=== PATIENT | male | born 1990 | race Caucasian/White ===

== ENCOUNTER 2021-09-29 16:07 | Emergency (ER) | payer OTHER, SELFPAY ==
[2021-09-29 16:20] VITALS: BP 128/89; PULSE 64; RESP 20; TEMP 36.9; O2SAT 98; BMI 17.7
[2021-09-29] MEDS: SODIUM CHLORIDE 0.9% 1,000 ML 1000 ML IV ×2 (16:43→18:25)
[2021-09-29] MEDS: METOCLOPRAMIDE 10 MG/2 ML INJ IV (16:43)
--- NOTE | 2021-09-29 16:45 | PC.NURSE ---
pt's HR noted to haim down to 32 then back to 40-60. pt reports hx of possibly a murmur. notified. EKG ordered.
[2021-09-29] MEDS: diazePAM 10 MG/2 ML SYRINGE 2 MG IV (16:57)
[2021-09-29] MEDS: PANTOPRAZOLE 40 MG VIAL IV (16:57)
--- NOTE | 2021-09-29 17:03 | ED.NAVMDI ---
HPI - Nausea/Vomiting/Diarrhea <DO Clau Xiong Last Filed: 09/30/21 07:00> General Chief complaint: Nausea/Vomiting/Diarrhea Stated complaint: Vomiting/Dehydration Time Seen by Provider: 09/29/21 16:50 Source: patient and family Mode of arrival: Wheelchair History of Present Illness HPI Narrative: Patient is a 31-year-old male history of cyclic vomiting marijuana use presenting today with nausea vomiting. Apparently they live in [place] driving here yesterday. Started feeling weak not great yesterday this morning vomiting numerous times. He is now received Reglan. He was noted to be slightly bradycardic heart rate in the 30 stone 40s. That seems to have helped him. Most of the history is from partner in room. Related Data Previous Rx's Medication Instructions Recorded haloperidol 2 mg tablet 2 mg PO Q6H PRN nausea and 09/29/21 vomiting #14 tabs Allergies Allergy/AdvReac Type Severity Reaction Status Date / Time No Known Drug Allergies Allergy Verified 09/29/21 16:25 Review of Systems <DO Clau Xiong Last Filed: 09/30/21 07:00> Review of Systems Narrative: GENERAL: Denies chills, fatigue, malaise, fever, sweats, travel HEENT: Denies sinus pain, ear pain, sore throat, difficulty swallowing, neck pain RESPIRATORY: Denies dyspnea, cough, wheezing, hemoptysis, sputum. CARDIOVASCULAR: Denies chest pain, palpitations, orthopnea, edema GASTROINTESTINAL: : Denies dysuria, frequency, incontinence, hematuria, urinary retention, flank pain. MUSCULOSKELETAL: Denies weakness, joint pain, or bony pain SKIN: No rash, no erythema, no pruritus NEUROLOGIC: Denies weakness, dizziness, headache, numbness, change in speech, confusion PSYCHIATRIC: No concerning psychosocial issues. 12 point review of systems is negative except for those stated above and HPI Patient History <DO Clau Xiong Last Filed: 09/30/21 07:00> Substance Use Type: marijuana Exam <DO Clau Xiong Last Filed: 09/30/21 07:00> Initial Vital Signs Initial Vital Signs: Vital Signs Temperature 98.4 F 09/29/21 16:20 Pulse Rate 64 09/29/21 16:20 Respiratory Rate 20 09/29/21 16:20 Blood Pressure 128/89 09/29/21 16:20 Pulse Oximetry 98 09/29/21 16:20 Oxygen Delivery Method 09/29/21 16:20 GENERAL: Sleeping 31-year-old male responsive and in no acute distress. HEENT: Head atraumatic,EOMI, pupils reactive, face symmetric, moist mucous membranes CARDIOVASCULAR: Regular rate and rhythm without murmurs, rubs or gallops. RESPIRATORY: Breath sounds equal bilaterally, no wheezes rales or rhonchi. ABDOMEN: Soft, nontender. Normoactive bowel sounds all 4 quadrants. No guarding or rebound. EXTREMITIES: Normal range of motion, no clubbing or edema. Neurovascularly intact NEUROLOGICAL: Alert and oriented x4.Normal gait and speech. SKIN: Warm, dry, no laceration, no petechiae, no rashes or lesions. <Zeinab Montana MD - Last Filed: 09/29/21 20:25> Initial Vital Signs Initial Vital Signs: Vital Signs Temperature 98.4 F 09/29/21 16:20 Pulse Rate 64 09/29/21 16:20 Respiratory Rate 20 09/29/21 16:20 Blood Pressure 128/89 09/29/21 16:20 Pulse Oximetry 98 09/29/21 16:20 Oxygen Delivery Method 09/29/21 16:20 Course <Darby Oconnor DO - Last Filed: 09/30/21 07:00> Orders Ordered: Discontinued Medications Diazepam (Diazepam 10 Mg/2 Ml Syringe) 2 mg IV NOW ONE Stop: 09/29/21 16:51 Last Admin: 09/29/21 16:57 Dose: 2 mg Documented By: SANDI Diphenhydramine HCl (Diphenhydramine 50 Mg/Ml Vial) 25 mg IV NOW ONE Stop: 09/29/21 19:37 Last Admin: 09/29/21 19:41 Dose: 25 mg Documented By: MIKAYLA Haloperidol (Haloperidol 5 Mg/Ml Vial) 2 mg IV NOW ONE Stop: 09/29/21 19:37 Last Admin: 09/29/21 19:42 Dose: 2 mg Documented By: MIKAYLA Sodium Chloride (Normal Saline 0.9%) 1,000 mls @ 1,000 mls/hr IV BOLUS ONE Stop: 09/29/21 17:25 Last Infusion: 09/29/21 17:37 Dose: 0 mls/hr Documented By: Admin: 09/29/21 16:43 Dose: 1,000 mls/hr Documented By: SANDI Sodium Chloride (Normal Saline 0.9%) 1,000 mls @ 1,000 mls/hr IV BOLUS ONE Stop: 09/29/21 19:21 Last Infusion: 09/29/21 19:53 Dose: 0 mls/hr Documented By: Admin: 09/29/21 18:25 Dose: 1,000 mls/hr Documented By: SANDI Metoclopramide HCl (Metoclopramide 10 Mg/2 Ml Inj) 10 mg IV NOW ONE Stop: 09/29/21 16:27 Last Admin: 09/29/21 16:43 Dose: 10 mg Documented By: SANDI Pantoprazole Sodium (Pantoprazole 40 Mg Vial) 40 mg IV NOW ONE Stop: 09/29/21 16:51 Last Admin: 09/29/21 16:57 Dose: 40 mg Documented By: SANDI Vital Signs Vital signs: Vital Signs - 8 hr 09/29/21 16:20 Temperature 98.4 F Pulse Rate 64 Respiratory Rate 20 Blood Pressure 128/89 Pulse Oximetry 98 Oxygen Delivery Method Room Air <Zeinab Montana MD - Last Filed: 09/29/21 20:25> Orders Ordered: Discontinued Medications Diazepam (Diazepam 10 Mg/2 Ml Syringe) 2 mg IV NOW ONE Stop: 09/29/21 16:51 Last Admin: 09/29/21 16:57 Dose: 2 mg Documented By: SANDI Diphenhydramine HCl (Diphenhydramine 50 Mg/Ml Vial) 25 mg IV NOW ONE Stop: 09/29/21 19:37 Last Admin: 09/29/21 19:41 Dose: 25 mg Documented By: MIKAYLA Haloperidol (Haloperidol 5 Mg/Ml Vial) 2 mg IV NOW ONE Stop: 09/29/21 19:37 Last Admin: 09/29/21 19:42 Dose: 2 mg Documented By: MIKAYLA Sodium Chloride (Normal Saline 0.9%) 1,000 mls @ 1,000 mls/hr IV BOLUS ONE Stop: 09/29/21 17:25 Last Infusion: 09/29/21 17:37 Dose: 0 mls/hr Documented By: Admin: 09/29/21 16:43 Dose: 1,000 mls/hr Documented By: SANDI Sodium Chloride (Normal Saline 0.9%) 1,000 mls @ 1,000 mls/hr IV BOLUS ONE Stop: 09/29/21 19:21 Last Infusion: 09/29/21 19:53 Dose: 0 mls/hr Documented By: Admin: 09/29/21 18:25 Dose: 1,000 mls/hr Documented By: SANDI Metoclopramide HCl (Metoclopramide 10 Mg/2 Ml Inj) 10 mg IV NOW ONE Stop: 09/29/21 16:27 Last Admin: 09/29/21 16:43 Dose: 10 mg Documented By: SANDI Pantoprazole Sodium (Pantoprazole 40 Mg Vial) 40 mg IV NOW ONE Stop: 09/29/21 16:51 Last Admin: 09/29/21 16:57 Dose: 40 mg Documented By: SANDI Vital Signs Vital signs: Vital Signs - 8 hr 09/29/21 16:20 Temperature 98.4 F Pulse Rate 64 Respiratory Rate 20 Blood Pressure 128/89 Pulse Oximetry 98 Oxygen Delivery Method Room Air MDM - Nausea/Vomiting/Diarrhea <Darby Oconnor DO - Last Filed: 09/30/21 07:00> Lab Data Result diagrams: 09/29/21 16:40 09/29/21 16:40 Labs: Lab Results 09/29/21 09/29/21 09/29/21 Range/Units 16:40 16:40 16:40 WBC 12.2 H (4.5-11.0) X10^3/uL RBC 4.64 (4.5-5.9) X10^6/uL Hgb 14.5 (13.5-17.5) g/dL Hct 43.0 (41-53) % MCV 92.6 (80-100) fL MCH 31.2 (26-34) PG MCHC 33.7 (30-36) % RDW 12.9 (11.6-14.8) % Plt Count 275 (150-400) X10^3/uL Neut % (Auto) 86.5 H (50-75) % Lymph % (Auto) 8.9 L (25-40) % Bennett % (Auto) 4.4 (3-14) % Eos % (Auto) 0.0 L (2-4) % Baso % (Auto) 0.2 (0-2) % Neut # (Auto) 12281 H (7581-1641) /uL Lymph # (Auto) 1100 (5060-4337) /uL Bennett # (Auto) 500 (0-900) /uL Eos # (Auto) 0 (0-450) /uL Baso # (Auto) 0 (0-100) /uL Sodium 139 (137-145) mmol/L Potassium 3.5 (3.4-5.1) mmol/L Chloride 105 (98-107) mmol/L Carbon Dioxide 25 (22-32) mmol/L BUN 12 (9-20) mg/dL Creatinine 0.68 (0.66-1.25) mg/dL Estimated GFR > 60 (>60) mL/min BUN/Creatinine Ratio 17.6 (6-22) Glucose 135 H (70-100) mg/dL Lactate 1.8 (0.7-2.1) mmol/L Calcium 9.7 (8.4-10.2) mg/dL Total Bilirubin 1.7 H (0.2-1.3) mg/dL AST 25 (17-59) IU/L ALT 26 (<50) IU/L Alkaline Phosphatase 66 (38-126) U/L Total Protein 8.1 (6.3-8.2) g/dL Albumin 4.7 (3.5-5.0) g/dL Globulin 3.4 (1.7-4.1) g/dL Albumin/Globulin Ratio 1.4 (1.0-2.8) Point of Care Testing Glucose POC 124 ECG Data Interpretation: Normal sinus rhythm rate 61 peer interval 184 QRS [address] changes MDM Narrative Medical decision making narrative: Patient is has a history of cyclic vomiting. Feeling better after fluids and Reglan. He was bradycardic 30-40 so Zofran was not given however his QTC is within normal limits. He is also given benzodiazepine and a 2 L of fluids. Signed out to Dr. [place]. 31-year-old gentleman with a history of a cyclic vomiting. He is independently examine. Sleepy after medications but does not have an acute abdomen. No evidence of obstruction, no suggestion of intra-abdominal infection or appendicitis. He is able to drink water and keep it down without pain or vomiting. Doing better after 2 L of fluid, Reglan, repeat dose of Haldol and Benadryl. Tolerating oral fluids and ready for discharge. He notes that he does smoke marijuana regularly, it sounds like he has had at least a partial workup of his cyclic vomiting but no ?specific etiology? has been identified. They are aware of cannabinoid hyperemesis syndrome. Because none of the other antiemetics have been helpful will give him a brief prescription for 2 mg of Haldol to be taken with 25 mg of Benadryl p.o. to help with nausea at home. He will follow-up with his primary care provider. <Zeinab Montana MD - Last Filed: 09/29/21 20:25> Lab Data Labs: Lab Results 09/29/21 09/29/21 09/29/21 Range/Units 16:40 16:40 16:40 WBC 12.2 H (4.5-11.0) X10^3/uL RBC 4.64 (4.5-5.9) X10^6/uL Hgb 14.5 (13.5-17.5) g/dL Hct 43.0 (41-53) % MCV 92.6 (80-100) fL MCH 31.2 (26-34) PG MCHC 33.7 (30-36) % RDW 12.9 (11.6-14.8) % Plt Count 275 (150-400) X10^3/uL Neut % (Auto) 86.5 H (50-75) % Lymph % (Auto) 8.9 L (25-40) % Bennett % (Auto) 4.4 (3-14) % Eos % (Auto) 0.0 L (2-4) % Baso % (Auto) 0.2 (0-2) % Neut # (Auto) 62462 H (1948-9016) /uL Lymph # (Auto) 1100 (9103-0359) /uL Bennett # (Auto) 500 (0-900) /uL Eos # (Auto) 0 (0-450) /uL Baso # (Auto) 0 (0-100) /uL Sodium 139 (137-145) mmol/L Potassium 3.5 (3.4-5.1) mmol/L Chloride 105 (98-107) mmol/L Carbon Dioxide 25 (22-32) mmol/L BUN 12 (9-20) mg/dL Creatinine 0.68 (0.66-1.25) mg/dL Estimated GFR > 60 (>60) mL/min BUN/Creatinine Ratio 17.6 (6-22) Glucose 135 H (70-100) mg/dL Lactate 1.8 (0.7-2.1) mmol/L Calcium 9.7 (8.4-10.2) mg/dL Total Bilirubin 1.7 H (0.2-1.3) mg/dL AST 25 (17-59) IU/L ALT 26 (<50) IU/L Alkaline Phosphatase 66 (38-126) U/L Total Protein 8.1 (6.3-8.2) g/dL Albumin 4.7 (3.5-5.0) g/dL Globulin 3.4 (1.7-4.1) g/dL Albumin/Globulin Ratio 1.4 (1.0-2.8) Point of Care Testing Glucose POC 124 MDM Narrative Medical decision making narrative: 31-year-old gentleman with a history of a cyclic vomiting. He is independently examine. Sleepy after medications but does not have an acute abdomen. No evidence of obstruction, no suggestion of intra-abdominal infection or appendicitis. He is able to drink water and keep it down without pain or vomiting. Doing better after 2 L of fluid, Reglan, repeat dose of Haldol and Benadryl. Tolerating oral fluids and ready for discharge. He notes that he does smoke marijuana regularly, it sounds like he has had at least a partial workup of his cyclic vomiting but no ?specific etiology? has been identified. They are aware of cannabinoid hyperemesis syndrome. Because none of the other antiemetics have been helpful will give him a brief prescription for 2 mg of Haldol to be taken with 25 mg of Benadryl p.o. to help with nausea at home. He will follow-up with his primary care provider. Discharge Plan Departure Patient Disposition: Home Clinical Impression: Cannabinoid hyperemesis syndrome Instructions: DI for Cannabinoid Hyperemesis Syndrome Activity Restrictions/Additional Instructions: Thank you for coming in today Your given 2 L of fluid, initially were given Reglan to help with the nausea. The 2nd dose of medication was a combination of Haldol and Benadryl. We found that this combination seems to be more helpful with the cyclic vomiting associated with cannabinoid hyperemesis syndrome and some of the other options such as Zofran. If you have not yet done any research on cannabinoid hyperemesis syndrome, I would encourage you to do so. The magazine [employer] has some very good resources as well as chat rooms related to this. I have given you a prescription for 2 mg of Haldol to help with nausea if it recurs. Frequently it works a bit better if you also take it with 1 tablet of Benadryl. You can repeat this every 6 hours. I would encourage you to follow-up with your primary care physician and return to the ER if you have further problems. Prescriptions: New haloperidol 2 mg tablet 2 mg PO Q6H PRN (Reason: nausea and vomiting) Qty: 14 0RF Referrals: Miscellaneous,Doctor, MD [Primary Care Provider] - Visit Report Forms: Patient Portal/API
[2021-09-29 17:05] LABS: Add Manual Diff / Slide Review NO; Basophils Absolute Auto 0 /uL (0-100); Basophils Percent Auto 0.2 % (0-2); Eosinophils Absolute Auto 0 /uL (0-450); Hemoglobin 14.5 g/dL (13.5-17.5); Lactate (Lactic Acid) 1.8 mmol/L (0.7-2.1); Lymphocytes Absolute Auto 1100 /uL (1100-4500); Lymphocytes Percent Auto 8.9 % (25-40); Mean Corpuscular HGB Conc 33.7 % (30-36); Mean Corpuscular Hemoglobin 31.2 PG (26-34); Mean Corpuscular Volume 92.6 fL (80-100); Monocytes Absolute Auto 500 /uL (0-900); Monocytes Percent Auto 4.4 % (3-14); Neutrophils Absolute Auto 10600 /uL (1500-7000); Neutrophils Percent Auto 86.5 % (50-75); Platelet Count 275 X10^3/uL (150-400); Red Blood Cell Count 4.64 X10^6/uL (4.5-5.9); Red Cell Distribution Width 12.9 % (11.6-14.8); White Blood Cell Count 12.2 X10^3/uL (4.5-11.0)
[2021-09-29 17:08] LABS: Alanine Aminotransferase 26 IU/L (<50); Albumin 4.7 g/dL (3.5-5.0); Albumin Globulin Ratio 1.4 (1.0-2.8); Alkaline Phosphatase 66 U/L (38-126); Aspartate Aminotransferase 25 IU/L (17-59); BUN Creatinine Ratio 17.6 (6-22); Bilirubin Total 1.7 mg/dL (0.2-1.3); Blood Urea Nitrogen 12 mg/dL (9-20); Calcium 9.7 mg/dL (8.4-10.2); Carbon Dioxide 25 mmol/L (22-32); Chloride 105 mmol/L (98-107); Estimated Glomerular Filt Rate > 60 mL/min (>60); Globulin 3.4 g/dL (1.7-4.1); Glucose 135 mg/dL (70-100); HEMOLYSIS < 15 (0-50); Potassium 3.5 mmol/L (3.4-5.1); Sodium 139 mmol/L (137-145); Total Protein 8.1 g/dL (6.3-8.2)
[2021-09-29 19:00] VITALS: PULSE 68; RESP 19; O2SAT 96
[2021-09-29 19:30] VITALS: O2SAT 98
[2021-09-29] MEDS: diphenhydrAMINE 50 MG/ML VIAL 25 MG IV (19:41)
[2021-09-29] MEDS: HALOPERIDOL 5 MG/ML VIAL 2 MG IV (19:42)
[2021-09-29 20:00] VITALS: PULSE 70; RESP 12; O2SAT 97
[2021-09-29 20:10] VITALS: BP 125/67; PULSE 65; RESP 19; O2SAT 97
== END 2021-09-29 20:39 | disposition home or self-care (01) ==
PROVIDERS: Emergency Provider Emergency Medicine
DX: R11.2 Nausea with vomiting, unspecified (principal); F12.90 Cannabis use, unspecified, uncomplicated
CPT/HCPCS: 36415; 80053; 82962; 83605; 85025; 93005; 93010; 96361; 96374; 96375; 99284; C9113; J1200; J1630; J2765; J3360